=== PATIENT | female | born 1960 | race Caucasian/White ===

== ENCOUNTER → 2016-07-30 | Outpatient (CLI) | payer OTHER | LOC: C.PAPS 09:55 | PROVIDERS: ATTEND Obstetrics & Gynecology | DX: Z87.898 Personal history of other specified conditions (principal) ==

== ENCOUNTER → 2017-09-30 | Outpatient (CLI) | payer OTHER | END | disposition home or self-care (01) | LOC: C.PAPS 18:35 | PROVIDERS: ATTEND Obstetrics & Gynecology | DX: Z12.4 Encounter for screening for malignant neoplasm of cervix (principal) ==